=== PATIENT | male | born 1985 | race Two or more races ===

== ENCOUNTER 2023-03-28 10:21 | Emergency (ER) | payer MEDICAID ==
[~2023-03-28] VITALS: Ht 188 cm; Wt 145.0 kg
[2023-03-28 14:49] VITALS: BP 151/92; PULSE 70; RESP 18; TEMP 97.6; O2SAT 95
[2023-03-28] MEDS ORDERED: METH-1181 PO (15:06)
[2023-03-28] MEDS ORDERED: IBUP-1454 PO (15:06)
[2023-03-28] MEDS ORDERED: ACETAMINOPHEN 500 MG TAB PO ONE (15:15)
[2023-03-28] MEDS ORDERED: KETOROLAC TROMETH 60MG/2ML VIAL IM ONE (15:15)
== END 2023-03-28 15:06 | disposition home or self-care (01) ==
LOC: ER 10:21
DX: M54.50 Low back pain, unspecified (principal); Z79.1 Long term (current) use of non-steroidal anti-inflammatories (NSAID); Z79.899 Other long term (current) drug therapy; Z88.2 Allergy status to sulfonamides; Z88.8 Allergy status to other drugs, medicaments and biological substances
CPT/HCPCS: 96372; 99283; J1885

== ENCOUNTER 2023-06-23 16:19 | Emergency (ER) | payer MEDICAID ==
[~2023-06-23] VITALS: Ht 188 cm; Wt 143.7 kg
[~2023-06-23 16:19] MED LIST: IBUP-1454 PO; METH-1181 PO
[2023-06-23 16:36] VITALS: BP 141/92; PULSE 96; RESP 16; TEMP 98.2; O2SAT 98
[2023-06-23] MEDS ORDERED: KETOROLAC TROMETH 60MG/2ML VIAL IM ONE (16:45)
[2023-06-23] MEDS ORDERED: IBUP-1456 PO (17:07)
[2023-06-23] MEDS ORDERED: BACL10TA PO (17:07)
== END 2023-06-23 17:10 | disposition home or self-care (01) ==
LOC: ER 16:19
DX: S39.012A Strain of muscle, fascia and tendon of lower back, initial encounter (principal); Z88.2 Allergy status to sulfonamides; Z88.6 Allergy status to analgesic agent; X50.0XXA Overexertion from strenuous movement or load, initial encounter; Y93.89 Activity, other specified; Y92.89 Other specified places as the place of occurrence of the external cause; Y99.8 Other external cause status
CPT/HCPCS: 72100; 96372; 99283; J1885